=== PATIENT | male | born 1995 | race Two or more races ===

== ENCOUNTER 2022-06-18 20:29 | Emergency (ER) | payer OTHER ==
[~2022-06-18] VITALS: Ht 190.5 cm; Wt 161.7 kg
[2022-06-18 21:12] LABS: Urine Bacteria NONE SEEN /hpf (None Seen); Urine Blood Negative /uL (Negative); Urine Mucus FEW (None Seen); Urine Specific Gravity 1.029 (1.001-1.035); Urine WBC 13 /hpf (0 - 3)
[2022-06-18 21:25] LABS: Basophils # (auto) 0 10 ^3/uL (0-0.2); Basophils % (auto) 0.4 % (0.0-2.0); Eosinophils # (auto) 0 10 ^3/uL (0-0.8); Eosinophils % (auto) 0.5 % (0.0-7.0); Hematocrit 44.7 % (41.0-53.0); Lymphocytes # (auto) 0.9 10 ^3/uL (0.4-5.4); Lymphocytes % (auto) 10.7 % (10.0-50.0); Mean Corpuscular Hemoglobin 29.9 pg (28.0-32.0); Mean Corpuscular Hgb Conc. 35.8 g/dL (32.0-36.0); Mean Corpuscular Volume 83.5 fL (80.0-100.0); Monocytes # (auto) 0.5 10 ^3/uL (0-1.3); Monocytes % (auto) 6.4 % (0.0-12.0); Neutrophils # (auto) 6.9 10 ^3/uL (1.6-8.6); Red Blood Cells 5.35 10^6/uL (4.5-5.90); Red Cell Distribution Width 13.1 % (11.8-14.3); White Blood Cell 8.5 10^3/uL (4.4-10.8)
[2022-06-18 21:39] LABS: Potassium 3.5 mmol/L (3.5-5.1)
[2022-06-18 21:43] LABS: BUN/Creatinine Ratio 20.3; Calcium 9.5 mg/dL (8.5-10.1)
[2022-06-18 21:46] LABS: Bilirubin, Total 0.7 mg/dL (0.2-1.0); Total Protein 7.9 g/dL (6.4-8.2)
[2022-06-19] MEDS ORDERED: cefTRIAXone SOD 1,000 MG VL IM ONE (06:00)
[2022-06-19] MEDS ORDERED: PERCOT PO (06:12)
[2022-06-19] MEDS ORDERED: NITR-87 PO (06:12)
[2022-06-19 06:39] VITALS: BP 153/51
== END 2022-06-19 06:54 | disposition home or self-care (01) ==
LOC: ER 20:29
DX: N39.0 Urinary tract infection, site not specified (principal)
CPT/HCPCS: 36415; 71250; 74176; 80053; 81001; 83690; 85025; 96372; 99285; J0696